=== PATIENT | female | born 1980 | race African-American/Black ===

== ENCOUNTER → 2017-05-05 | Outpatient (CLI) | payer OTHER ==
[~2017-05-05] MED LIST: BECL8.7A6 IH; BENZ200C53 PO; FLUT16H NASAL; LORA10TA7 PO; OMEP20 PO
== END | disposition home or self-care (01) ==
LOC: RESP 11:25
PROVIDERS: ATTEND Internal Medicine Critical Care Medicine
DX: R06.00 Dyspnea, unspecified (principal)
CPT/HCPCS: 94010; 94726; 94727; 94729